=== PATIENT | female | born 1965 | race Two or more races ===

== ENCOUNTER 2021-02-26 07:24 | Outpatient (CLI) | payer OTHER | END 2021-02-26 07:32 | disposition home or self-care (01) | LOC: LAB 07:24 | DX: E78.49 Other hyperlipidemia (principal); N95.1 Menopausal and female climacteric states; E23.6 Other disorders of pituitary gland; N39.0 Urinary tract infection, site not specified ==

== ENCOUNTER 2021-03-09 07:16 | Outpatient (CLI) | payer OTHER | END 2021-03-09 07:24 | disposition home or self-care (01) | LOC: MAMO-SONO 07:16 | PROVIDERS: ATTEND Obstetrics & Gynecology | DX: N63.10 Unspecified lump in the right breast, unspecified quadrant (principal); N63.20 Unspecified lump in the left breast, unspecified quadrant ==

== ENCOUNTER → 2024-07-10 06:19 | Outpatient (CLI) | payer OTHER ==
[2024-07-10 07:37] LABS: HEMOGLOBIN 12.5 g/dL (12.0-15.00); MEAN CELL VOLUME 84.7 fL (80.00-100.00); MEAN CORPUSCULAR HEMOGLOBIN 29.5 pg (27.00-32.0); MEAN CORPUSCULAR HGB CONC 34.8 g/dl (32.0-36.0); PLATELET COUNT 273 K/uL (150-450); RED BLOOD COUNT 4.25 M/uL (4.00-6.00); RED CELL DISTRIBUTION WIDTH 13.2 % (11.5-14.5)
[2024-07-10 07:46] LABS: PH,URINE 7.5 (5.0-8.0); URINE APPEARANCE Clear; URINE BILIRRUBIN Negative (NEGATIVE); URINE COLOR Yellow; URINE GLUCOSE Negative (NEGATIVE); URINE KETONE Negative (NEGATIVE); URINE LEUKOCYTE Negative; URINE NITRATE Negative; URINE PROTEIN Negative (NEGATIVE)
[2024-07-10 07:51] LABS: URINE BACTERIA 6.2 uL (0.0-1933); URINE EPITHELIAL CELLS 1.8 uL (0.0-38.8); URINE RBC 69.6 uL (0.0-20.8); URINE WBC 2.1 uL (0.0-23.2)
[2024-07-10 08:03] LABS: PARTIAL THROMBOPLASTIN TIME 29.9 SECONDS (22.0-34.0)
[2024-07-10 08:07] LABS: PROTHROMBIN TIME 10.9 SECONDS (9.0-11.5)
[2024-07-10 08:08] LABS: ERYTHROCYTE SEDIMENTATION RATE 23 mm/hr
[2024-07-10 08:13] LABS: URINE BLOOD TRACES; URINE CAST 0.15 uL (0.0-1.40)
[2024-07-10 08:18] LABS: ALBUMIN 4.1 gm/dL (3.4-5.0); ALKALINE PHOSPHATASE 103 U/L (50-136); ALT/SGPT 19 U/L (12-78); ANION GAP 2 (10.0-20.0); AST/SGOT 12 U/L (15-37); BILIRUBIN TOTAL 0.64 mg/dL (0.3-1.2); BLOOD UREA NITROGEN 22 mg/dL (7-18); BUN CREA RATIO 32 (7.0-25.0); CALCIUM 8.9 mg/dL (8.5-10.1); CARBON DIOXIDE 35 mEq/L (21-32); CHLORIDE 107 mmol/L (98-107); CHOL HDL RATIO 2.7 (0-5.0); CHOLESTEROL 191 mg/dL (0-200); CREATININE SERUM 0.69 mg/dL (0.55-1.02); GFR 88.01; GLOBULINA 3.8 G/DL (2.4-3.5); GLUCOSE FASTING 85 mg/dL (65-100); HDL 70 mg/dl (40-60); LDL 104 mg/dl (0-130); OSMOLALITY SERUM 282 MOSM/KG (275-295); POTASSIUM 3.83 mEq/L (3.5-5.1); SODIUM 140 mmol/L (136-145); T4 TOTAL 7.76 UG/DL (4.8-13.9); TOTAL PROTEIN 7.9 gm/dL (6.4-8.2); TRIGLYCERIDES 85 mg/dL (0-150); VLDL 17 (0-39)
[2024-07-10 08:48] LABS: C-REACTIVE PROTEIN < 0.29 MG/DL (0.00-0.29)
[2024-07-10 10:23] LABS: ob NEGATIVE (NEGATIVE)
[2024-07-10 14:22] LABS: FOLIC ACID 19.89 ng/ml (4.78-20); T3 TOTAL 1.12 ng/ml (0.846-2.02); VITAMIN D3 25 HYDROXY 42.52 ng/ml (30-120)
[2024-07-11 09:07] LABS: CA 125 5.9 U/mL (0.0-38.1); CA 19-9 6 U/mL (0-35); HOMOCYSTEINE 8.9 umol/L (0.0-14.5)
== END | disposition home or self-care (01) ==
LOC: LAB 06:19
DX: D64.9 Anemia, unspecified (principal); G89.29 Other chronic pain; E55.9 Vitamin D deficiency, unspecified; D50.8 Other iron deficiency anemias; D51.1 Vitamin B12 deficiency anemia due to selective vitamin B12 malabsorption with proteinuria; D51.3 Other dietary vitamin B12 deficiency anemia; O03.88 Urinary tract infection following complete or unspecified spontaneous abortion; D52.0 Dietary folate deficiency anemia; K29.00 Acute gastritis without bleeding; E11.65 Type 2 diabetes mellitus with hyperglycemia; Z11.3 Encounter for screening for infections with a predominantly sexual mode of transmission; Z01.89 Encounter for other specified special examinations; E03.9 Hypothyroidism, unspecified; R73.9 Hyperglycemia, unspecified; D69.9 Hemorrhagic condition, unspecified; M10.9 Gout, unspecified; J30.0 Vasomotor rhinitis; R97.8 Other abnormal tumor markers

== ENCOUNTER 2024-07-14 07:12 | Outpatient (CLI) | payer OTHER | END 2024-07-14 07:22 | disposition home or self-care (01) | LOC: MAMO-SONO 07:12 | PROVIDERS: ATTEND Family Medicine Geriatric Medicine | DX: N60.11 Diffuse cystic mastopathy of right breast (principal); N60.12 Diffuse cystic mastopathy of left breast; N64.4 Mastodynia; N60.39 Fibrosclerosis of unspecified breast; N60.29 Fibroadenosis of unspecified breast; N63 Unspecified lump in breast; Z12.31 Encounter for screening mammogram for malignant neoplasm of breast; J32.0 Chronic maxillary sinusitis; J01.00 Acute maxillary sinusitis, unspecified; J45.902 Unspecified asthma with status asthmaticus; R05.9 Cough, unspecified; R07.1 Chest pain on breathing; R10.9 Unspecified abdominal pain; N94.89 Other specified conditions associated with female genital organs and menstrual cycle; R10.2 Pelvic and perineal pain; R10.84 Generalized abdominal pain; N20.0 Calculus of kidney; G44.89 Other headache syndrome; R31.0 Gross hematuria; R31.9 Hematuria, unspecified ==